=== PATIENT | male | born 1990 | race Caucasian/White ===

== ENCOUNTER 2020-02-13 20:40 | Emergency (ER) | payer BC ==
[~2020-02-13] VITALS: Ht 170.2 cm; Wt 117.9 kg
[~2020-02-13 20:40] MED LIST: NO MEDS
[2020-02-13] MEDS ORDERED: CEFTRIAXONE SOD 1 GM VIAL IM ONE (21:15)
[2020-02-13] MEDS ORDERED: LIDOCAINE 1% 5ML-MPF INJ ONE (21:15)
[2020-02-13] MEDS ORDERED: LIDOCAINE HCL 1% LOCAL INJ 20 ML VIAL ONE (21:20)
[2020-02-13 22:05] LABS: CLARITY,URINE CLOUDY (CLEAR); COLOR,URINE ORANGE (YELLOW)
[2020-02-13 22:06] LABS: LEUKOCYTE ESTERASE ,URINE SMALL (NEGATIVE); NITRITE,URINE POSITIVE (NEGATIVE)
[2020-02-13 22:07] LABS: PROTEIN,URINE DIPSTICK 1+ (NEGATIVE)
[2020-02-13 22:08] LABS: BILIRUBIN,URINE NEGATIVE (NEGATIVE); KETONES,URINE NEGATIVE (NEGATIVE); URINE UROBILINOGEN 1 mg/dL (0.2 - 1)
[2020-02-13 22:15] LABS: BACTERIA,URINE MANY /HPF; EPITHELIAL CELLS,URINE RARE /LPF; RBC,URINE 21-50 /HPF (0-5)
[2020-02-13 22:24] VITALS: BP 134/65
== END 2020-02-13 22:32 | disposition home or self-care (01) ==
LOC: ER 20:40
DX: R30.0 Dysuria (principal); F17.210 Nicotine dependence, cigarettes, uncomplicated
CPT/HCPCS: 81001; 87086; 87186; 99283; J0696; J2001

== ENCOUNTER 2020-02-27 16:55 | Emergency (ER) | payer BC ==
[~2020-02-27] VITALS: Ht 170.2 cm; Wt 117.9 kg
[2020-02-27 18:00] LABS: CLARITY,URINE CLOUDY (CLEAR); COLOR,URINE RED (YELLOW)
[2020-02-27 18:01] LABS: BILIRUBIN,URINE LARGE (NEGATIVE); KETONES,URINE 1+ (NEGATIVE); LEUKOCYTE ESTERASE ,URINE LARGE (NEGATIVE); NITRITE,URINE POSITIVE (NEGATIVE); PROTEIN,URINE DIPSTICK >=300 (NEGATIVE)
[2020-02-27 18:05] LABS: BACTERIA,URINE MODERATE /HPF; EPITHELIAL CELLS,URINE FEW /LPF; MUCUS,URINE FEW (RARE); RBC,URINE >50 /HPF (0-5); WBC,URINE (MAN) >50 /HPF (0-5)
[2020-02-27] MEDS ORDERED: MEROPENEM 1GM 100 ML IV ONE (18:30)
[2020-02-27 19:17] LABS: BASOPHILS # (AUTO) 0.1 (0.0-0.1); BASOPHILS % 0.6 % (0.0-1.0); EOSINOPHILS # (AUTO) 0.1 (0.0-0.4); EOSINOPHILS % 0.4 % (0.0-6.0); HEMATOCRIT 46.3 % (38.2-49.6); LYMPHOCYTES # (AUTO) 1.4 (1.0-3.2); LYMPHOCYTES % 11.6 % (18.0-39.1); MEAN CORPUSCULAR HEMOGLOBIN 29.4 pg (28-32); MEAN CORPUSCULAR HGB CONC 34.6 g/dL (31-35); MEAN CORPUSCULAR VOLUME 85.1 fL (81-99); MONOCYTES # (AUTO) 0.6 (0.2-0.8); MONOCYTES % 4.9 % (4.4-11.3); NEUTROPHILS # (AUTO) 9.9 (2.1-6.9); NEUTROPHILS % 82.3 % (38.7-80.0); PLATELET COUNT 337 x10e3/uL (140-360); RED BLOOD COUNT 5.44 x10e6/uL (4.3-5.7); RED CELL DISTRIBUTION WIDTH 12.8 % (11.7-14.4)
[2020-02-27 19:40] LABS: ALANINE AMINOTRANSFERASE 130 IU/L (0-55); ALBUMIN 4.3 g/dL (3.5-5.0); ALBUMIN/GLOBULIN RATIO 1.3 (0.8-2.0); ALKALINE PHOSPHATASE 89 IU/L (40-150); ANION GAP 12.1 mmol/L (8-16); BLOOD UREA NITROGEN 9 mg/dL (7-26); BUN/CREATININE RATIO 11 (6-25); CALCIUM 9.5 mg/dL (8.4-10.2); CARBON DIOXIDE 27 mmol/L (22-29); CHLORIDE 105 mmol/L (98-107); CREATININE, SERUM 0.82 mg/dL (0.72-1.25); EST GLOMERULAR FILTRATION RATE > 60 ML/MIN (60-); GLUCOSE 101 mg/dL (74-118); POTASSIUM 4.1 mmol/L (3.5-5.1); SODIUM 140 mmol/L (136-145)
[2020-02-27 20:07] VITALS: BP 133/84
== END 2020-02-27 20:14 | disposition home or self-care (01) ==
LOC: ER 16:55
DX: N30.01 Acute cystitis with hematuria (principal); Q54.1 Hypospadias, penile
CPT/HCPCS: 36415; 80053; 81001; 85025; 87040; 87086; 99283; J2185

== ENCOUNTER 2020-06-11 22:54 | Emergency (ER) | payer SELFPAY ==
[~2020-06-11] VITALS: Ht 170.2 cm; Wt 117.9 kg
[2020-06-11 23:43] LABS: CLARITY,URINE CLOUDY (CLEAR); COLOR,URINE RED (YELLOW)
[2020-06-11 23:44] LABS: BILIRUBIN,URINE 1+ (NEGATIVE); KETONES,URINE NEGATIVE (NEGATIVE); LEUKOCYTE ESTERASE ,URINE 2+ (NEGATIVE); NITRITE,URINE NEGATIVE (NEGATIVE); PROTEIN,URINE DIPSTICK >=300 (NEGATIVE); URINE UROBILINOGEN 0.2 mg/dL (0.2 - 1)
[2020-06-11 23:50] LABS: WBC,URINE (MAN) >50 /HPF (0-5)
[2020-06-11 23:51] LABS: BACTERIA,URINE MANY /HPF; EPITHELIAL CELLS,URINE FEW /LPF; RBC,URINE >50 /HPF (0-5); RENAL EPITHELIAL CELLS,URINE FEW; TRANSITIONAL EPI CELLS,URINE FEW
[2020-06-12] MEDS ORDERED: BACTRIM DS TAB1 EACH PO (00:19)
--- NOTE | 2020-06-12 00:26 | Emergency Department Note ---
History of Present Illnes History of Present Illness Chief Complaint: Abdominal Complaints History of Present Illness This is a 29 year old male arrives to the ED with complaints of burning with urination, states he has underlying urethral abnormalities. Chief Complaint Comment PATIENT HAS BEEN HAVING URINARY BURNING SENSATION SINCE 05/31/20, STATES PELVIC PAIN, PELVIC PAIN AND BURNING SENSATION HAS GOTTEN WORSE, DENIES FEVER, SHORTNESS OF BREATH, OR COUGH. PATIENT IS CURRENTLY TAKING AZO OTC Historian: Patient Onset (how long ago): day(s) Onset quality: gradual Duration (how long): day(s) Timing of current episode: constant Progression: unchanged Chronicity: recurrent Relieving factors: none Exacerbating factors: none Past Medical/Family History Physician Review I have reviewed the patient's past medical and family history. Any updates have been documented here. Past Medical History Recent Fever: No Clinical Suspicion of Infectio: No New/Unexplained Change in Ment: No Past Medical History: None Other Surgery: testical surgery, and penile surgery for urinary tract reconstruction Social History Physically hurt or threatened: No Other Last Tetanus: UNKNOWN Review of Systems Review of Systems Constitutional: Reports no symptoms EENTM: Reports no symptoms Cardiovascular: Reports no symptoms Respiratory: Reports no symptoms Gastrointestinal: Reports no symptoms Genitourinary: Reports as per HPI, Reports dysuria Musculoskeletal: Reports no symptoms Integumentary: Reports no symptoms Neurological: Reports no symptoms Psychological: Reports no symptoms Endocrine: Reports no symptoms Hematological/Lymphatic: Reports no symptoms Review of other systems: All other systems negative Physical Exam Related Data Allergies: Coded Allergies: No Known Allergies (Unverified , 09/09/17) Triage Vital Signs Vital Signs Date Time Temp Pulse Resp B/P (MAP) Pulse Ox O2 Delivery O2 Flow Rate FiO2 06/11/20 23:05 98.7 90 20 146/107 98 Room Air Vital signs reviewed: Yes Physical Exam CONSTITUTIONAL Constitutional: Present well-developed, Present well-nourished HENT HENT: Present normocephalic, Present atraumatic, Present oropharynx clear/moist, Present nose normal HENT L/R: Present left ext ear normal, Present right ext ear normal EYES Eyes: Reports PERRL, Reports conjunctivae normal NECK Neck: Present ROM normal PULMONARY Pulmonary: Present effort normal, Present breath sounds normal CARDIOVASCULAR Cardiovascular: Present regular rhythm, Present heart sounds normal, Present capillary refill normal, Present normal rate GASTROINTESTINAL Abdominal: Present soft, Present nontender, Present bowel sounds normal GENITOURINARY Genitourinary: Present exam deferred SKIN Skin: Present warm, Present dry MUSCULOSKELETAL Musculoskeletal: Present ROM normal NEUROLOGICAL Neurological: Present alert, Present oriented x 3, Present no gross motor or sensory deficits PSYCHOLOGICAL Psychological: Present mood/affect normal, Present judgement normal Results Laboratory Laboratory Laboratory Tests Test 06/11/20 23:19 Urine Color Red (YELLOW) Urine Clarity Cloudy (CLEAR) Urine pH 6 (5 - 7) Urine Specific [place] 1.010 (1.010-1.025) Urine Protein >=300 (NEGATIVE) Urine Glucose (UA) Negative (NEGATIVE) Urine Ketones Negative (NEGATIVE) Urine Blood 4+ (NEGATIVE) Urine Nitrite Negative (NEGATIVE) Urine Bilirubin 1+ (NEGATIVE) Urine Urobilinogen 0.2 mg/dL (0.2 - 1) Urine Leukocyte Esterase 2+ (NEGATIVE) Urine RBC >50 /HPF (0-5) Urine WBC >50 /HPF (0-5) Urine Epithelial Cells Few /LPF (NONE) Urine Transitional Epithelial Cells Few (NONE) Urine Renal Epithelial Cells Few (NONE) Urine Bacteria Many /HPF (NONE) Lab results reviewed: Yes Assessment & Plan Medical Decision Making MDM 29-year-old male arrives to the ED with burning with urination, urine consistent with urinary tract infection. Spoke to patient at length about the importance of urology follow-up for resolution of his underlying urethral abnormality Assessment & Plan Final Impression: (1) UTI (urinary tract infection) Depart Disposition: HOME, SELF-CARE Last Vital Signs Date Time Temp Pulse Resp B/P (MAP) Pulse Ox O2 Delivery O2 Flow Rate FiO2 06/11/20 23:05 98.7 90 20 146/107 98 Room Air Home Meds Active Scripts Sulfamethoxazole/Trimethoprim (BACTRIM DS TABLET) 1 Each Tablet, 1 TAB PO BID, #20 TAB 0 Refills Prov:CARISA BEE DO 06/12/20 Reported Medications [No Meds] No Conflict Check 06/05/15 CARISA BEE DO Jun 12, 2020 00:26
== END 2020-06-11 23:45 | disposition home or self-care (01) ==
LOC: ER 23:30
DX: N39.0 Urinary tract infection, site not specified (principal); R30.0 Dysuria; R10.2 Pelvic and perineal pain
CPT/HCPCS: 81001; 87086; 87186; 99283

== ENCOUNTER 2020-06-18 23:48 | Emergency (ER) | payer SELFPAY ==
[~2020-06-18] VITALS: Ht 170.2 cm; Wt 117.9 kg
[~2020-06-18 23:48] MED LIST changes: +BACTRIM DS TAB1 EACH PO
[2020-06-19] MEDS ORDERED: KETOROLAC TROMETHAMINE 60 MG/2 ML VIAL IM ONE (00:30)
[2020-06-19] MEDS ORDERED: SODIUM CHLORIDE 0.9% 1000ML 1,000 ML IV SCH (00:30)
[2020-06-19] MEDS ORDERED: CEFTRIAXONE SOD 1 GM/NS 50 ML 50 ML IV ONE (00:30)
[2020-06-19] MEDS ORDERED: ACETAMINOPHEN 325 MG TAB PO ONE (00:30)
[2020-06-19] MEDS ORDERED: KETOROLAC TROMETHAMINE 30 MG/ML VIAL IV STA (00:43)
--- NOTE | 2020-06-19 00:53 | Emergency Department Note ---
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 Historian: Patient Arrival Mode: Car Onset (how long ago): day(s) (2) Location: RIGHT TESTICLE Quality: SWELLING AND PAIN Radiation: Reports non-radiation Severity: moderate Onset quality: gradual Duration (how long): day(s) (2) Timing of current episode: constant Progression: worsening Context: Reports recent illness (UTI DIAGNOSED ON 06/11/20) Relieving factors: none Exacerbating factors: other (URINATION) Associated symptoms: Reports fever/chills (SUBJECTIVE) Treatments prior to arrival: other (ON BACTRIM DS AND TAKING OTC AZO) Past Medical/Family History Physician Review I have reviewed the patient's past medical and family history. Any updates have been documented here. Past Medical History Recent Fever: No Clinical Suspicion of Infectio: No New/Unexplained Change in Ment: No Past Medical History: None Other Surgery: testical surgery, and penile surgery for urinary tract reconstruction Social History Smoking Cessation: Never Smoker Any Illegal Drug Use: No Physically hurt or threatened: No Family History Family history of heart diseas: No Other Last Tetanus: UNKNOWN Review of Systems Review of Systems Constitutional: Reports as per HPI EENTM: Reports no symptoms Cardiovascular: Reports no symptoms Respiratory: Reports no symptoms Gastrointestinal: Reports no symptoms Genitourinary: Reports as per HPI Musculoskeletal: Reports no symptoms Integumentary: Reports no symptoms Neurological: Reports no symptoms Psychological: Reports no symptoms Endocrine: Reports no symptoms Hematological/Lymphatic: Reports no symptoms Physical Exam Related Data Allergies: Coded Allergies: No Known Allergies (Unverified , 09/09/17) Triage Vital Signs Vital Signs Date Time Temp Pulse Resp B/P (MAP) Pulse Ox O2 Delivery O2 Flow Rate FiO2 06/19/20 00:20 102.3 101 20 157/97 97 Room Air Vital signs reviewed: Yes Physical Exam CONSTITUTIONAL Constitutional: Present well-developed, Present well-nourished, Present distressed (MILD) HENT HENT: Present normocephalic, Present atraumatic, Present oropharynx clear/moist, Present nose normal HENT L/R: Present left ext ear normal, Present right ext ear normal EYES Eyes: Reports PERRL, Reports conjunctivae normal NECK Neck: Present ROM normal PULMONARY Pulmonary: Present effort normal, Present breath sounds normal CARDIOVASCULAR Cardiovascular: Present regular rhythm, Present heart sounds normal, Present capillary refill normal, Present tachycardia (101) GASTROINTESTINAL Abdominal: Present soft, Present nontender, Present bowel sounds normal GENITOURINARY Genitourinary: Present other (SWELLING TO RIGHT SCROTUM/TESTICLE WITH TENDERNESS) SKIN Skin: Present warm, Present dry MUSCULOSKELETAL Musculoskeletal: Present ROM normal NEUROLOGICAL Neurological: Present alert, Present oriented x 3, Present no gross motor or sensory deficits PSYCHOLOGICAL Psychological: Present mood/affect normal, Present judgement normal Results Laboratory Laboratory Laboratory Tests Test 06/19/20 00:35 06/19/20 00:33 White Blood Count 13.62 x10e3/uL (4.8-10.8) Red Blood Count 5.19 x10e6/uL (4.3-5.7) Hemoglobin 14.6 g/dL (14.0-18.0) Hematocrit 44.4 % (38.2-49.6) Mean Corpuscular Volume 85.5 fL (81-99) Mean Corpuscular Hemoglobin 28.1 pg (28-32) Mean Corpuscular Hemoglobin Concent 32.9 g/dL (31-35) Red Cell Distribution Width 13.1 % (11.7-14.4) Platelet Count 359 x10e3/uL (140-360) Neutrophils (%) (Auto) 68.5 % (38.7-80.0) Lymphocytes (%) (Auto) 19.5 % (18.0-39.1) Monocytes (%) (Auto) 9.8 % (4.4-11.3) Eosinophils (%) (Auto) 1.0 % (0.0-6.0) Basophils (%) (Auto) 0.7 % (0.0-1.0) Neutrophils # (Auto) 9.3 (2.1-6.9) Lymphocytes # (Auto) 2.7 (1.0-3.2) Monocytes # (Auto) 1.3 (0.2-0.8) Eosinophils # (Auto) 0.1 (0.0-0.4) Basophils # (Auto) 0.1 (0.0-0.1) Absolute Immature Granulocyte (auto 0.07 x10e3/uL (0-0.1) Sodium Level 133 mmol/L (136-145) Potassium Level 5.0 mmol/L (3.5-5.1) Chloride Level 105 mmol/L (98-107) Carbon Dioxide Level 19 mmol/L (22-29) Anion Gap 14.0 mmol/L (8-16) Blood Urea Nitrogen 9 mg/dL (7-26) Creatinine 1.04 mg/dL (0.72-1.25) Estimat Glomerular Filtration Rate > 60 ML/MIN (60-) BUN/Creatinine Ratio 9 (6-25) Glucose Level 268 mg/dL (74-118) Lactic Acid Level 1.6 mmol/L (0.5-2.0) Calcium Level 9.6 mg/dL (8.4-10.2) Total Bilirubin 0.4 mg/dL (0.2-1.2) Aspartate Amino Transf (AST/SGOT) 121 IU/L (5-34) Alanine Aminotransferase (ALT/SGPT) 299 IU/L (0-55) Alkaline Phosphatase 169 IU/L (40-150) Total Protein 8.3 g/dL (6.5-8.1) Albumin 4.0 g/dL (3.5-5.0) Globulin 4.3 g/dL (2.3-3.5) Albumin/Globulin Ratio 0.9 (0.8-2.0) Urine Color Yellow (YELLOW) Urine Clarity Cloudy (CLEAR) Urine pH 6 (5 - 7) Urine Specific [place] 1.025 (1.010-1.025) Urine Protein 1+ (NEGATIVE) Urine Glucose (UA) 2+ (NEGATIVE) Urine Ketones Negative (NEGATIVE) Urine Blood 2+ (NEGATIVE) Urine Nitrite Positive (NEGATIVE) Urine Bilirubin Negative (NEGATIVE) Urine Urobilinogen 0.2 mg/dL (0.2 - 1) Urine Leukocyte Esterase 1+ (NEGATIVE) Urine RBC >50 /HPF (0-5) Urine WBC >50 /HPF (0-5) Urine Epithelial Cells Few /LPF (NONE) Urine Bacteria Many /HPF (NONE) Lab results reviewed: Yes Imaging Imaging results reviewed: Yes Impressions Examination: Single AP view of the chest. COMPARISON: None. INDICATION: Fever, left testicular swelling and pain IMPRESSION: 1. Lines and Tubes: None 2. Lungs are grossly clear. No consolidation or effusion. 3. Cardiomediastinal silhouette is normal. Pulmonary vasculature is normal. 4. No acute bony abnormalities. Signed by: Dr. Gretchen Cortez M.D. on 06/19/2020 12:59 AM Dictated By: GRETCHEN CORTEZ MD Transcribed By: STACIA on 06/19/2058 COPY TO: SAW WERNER MD~ EXAMINATION: Scrotal ultrasound CLINICAL INDICATION: Right scrotal/testicular pain, right testicular swelling. COMPARISON: None available.. TECHNIQUE: Grayscale and color Doppler evaluation of the scrotum was performed in transverse and longitudinal planes. FINDINGS: RIGHT: The right testicle measures 4.1 x 2.1 x 3.6 cm. Diffusely increased vascularity. There are no masses or calcifications.. The right epididymal head was not visualized. The right epididymal body and tail are edematous/body, and show increased vascularity on color Doppler. No nodules or masses.. No hydrocele. No varicocele. There is normal arterial and venous flow to the right testicle, without evidence of torsion. LEFT: The left testicle measures 4.4 x 2.0 x 3.1 cm. Normal vascularity. There are no masses or calcifications.. The left epididymis measures 1.6 x 0.9 x 1.0 cm. Normal vascularity. 0.8 x 0.7 x 0.9 cm cystic, anechoic lesion in the left epididymal head.. No hydrocele. No varicocele. There is normal arterial and venous flow to the left testicle, without evidence of torsion. SCROTUM: The scrotum has a normal appearance, without focal lesions. IMPRESSION: 1. Findings consistent with right epididymoorchitis, in the appropriate clinical setting. 2. 0.9 cm left epididymal head simple cyst versus hematocele. Signed by: Dr. Gretchen Cortez M.D. on 06/19/2020 2:55 AM EXAM: Right Upper Quadrant Ultrasound INDICATION: ^ELEVATED LFT'S ^Y COMPARISON: None. TECHNIQUE: Transverse and longitudinal images of the right upper abdomen were obtained. FINDINGS: Liver: Size: 20.2 cm in the right midclavicular line, mildly to moderately enlarged Appearance: Increased echogenicity, smooth contour Mass: No focal masses Gallbladder: Contracted Stones/Sludge: None Wall: 0.5 cm Appearance: No pericholecystic fluid or hydrops. Sonographic Warren's Sign: Negative Bile Ducts: Intrahepatic Ducts: No dilatation Extrahepatic Ducts: Common bile duct measures 0.3 cm, no dilatation Pancreas: Obscured by overlying bowel gas. Kidneys: Length: Right 12.2 cm Echogenicity: Normal Collecting System: No hydronephrosis Stone: None Cyst/Mass: None Vessels: Aorta: Obscured by overlying bowel gas. Inferior Vena Cava: Visualized portions are normal Main Portal Vein: 1.0 cm, normal size with hepatopetal flow. Free Fluid: No ascites or pleural effusion IMPRESSION: 1. Mild to moderate hepatomegaly with diffuse fatty infiltration. No focal lesions. 2. Contracted gallbladder. No stones or sludge are identified. 3. Unable to evaluate pancreas and aorta due to overlying bowel gas. Signed by: Dr. Gretchen oCrtez M.D. on 06/19/2020 2:57 AM Dictated By: GRETCHEN CORTEZ MD Assessment & Plan Medical Decision Making MDM PT WITH FEVER, BURNING WITH URINATION AND SWELLING TO RIGHT TESTICLE CBC,CMP, UA, BLOOD CULTURE, URINE CULTURE, CXR, LACTIC ACID, TESTICULAR U/S WITH DOPPLER ORDERED TO EVAL FOR SEPSIS, UTI, EPIDIDYMITIS, ORCHITIS, TESTICULAR TORSION,PNEUMONIA, ELECTROLYTE ABNORMALITY TYLENOL 975 MG PO ORDERED TORADOL 30 MG IV ORDERED ROCEPHIN 1 GRAM IV ORDERED NS 1 LITER IV BOLUS ORDERED pt discharge home, follow up with urology omnicef 300 mg po bid for 10 days Assessment & Plan Final Impression: (1) UTI (urinary tract infection) (2) Fever (3) Epididymitis (4) Orchitis Last Vital Signs Date Time Temp Pulse Resp B/P (MAP) Pulse Ox O2 Delivery O2 Flow Rate FiO2 06/19/20 00:20 102.3 101 20 157/97 97 Room Air Home Meds Active Scripts Sulfamethoxazole/Trimethoprim (BACTRIM DS TABLET) 1 Each Tablet, 1 TAB PO BID, #20 TAB 0 Refills Prov:CARISA BEE DO 06/12/20 Reported Medications [No Meds] No Conflict Check 06/05/15 Medications in the ED Ketorolac Tromethamine 60 mg ONCE ONCE IM ; Start 06/19/20 at 00:30; Stop 06/19/20 at 00:44; Status DC Sodium Chloride 1,000 ml @ 100 mls/hr Q10H IV ; Start 06/19/20 at 00:30; Stop 07/19/20 at 00:29 Acetaminophen 975 mg ONCE ONCE PO ; Start 06/19/20 at 00:30; Stop 06/19/20 at 00:36; Status DC Ceftriaxone Sodium 50 ml @ 100 mls/hr ONCE ONCE IV ; Start 06/19/20 at 00:30; Stop 06/19/20 at 00:59 Ketorolac Tromethamine 30 mg ONCE STAT IV ; Start 06/19/20 at 00:43; Stop 06/19/20 at 00:44; Status SAW TARIQ MD Jun 19, 2020 00:53
--- NOTE | 2020-06-19 01:02 | Diagnostic Imaging Report ---
Examination: Single AP view of the chest. COMPARISON: None. INDICATION: Fever, left testicular swelling and pain IMPRESSION: 1. Lines and Tubes: None 2. Lungs are grossly clear. No consolidation or effusion. 3. Cardiomediastinal silhouette is normal. Pulmonary vasculature is normal. 4. No acute bony abnormalities. Signed by: Dr. Shekhar Cortez M.D. on 06/19/2020 12:59 AM
[2020-06-19 01:04] LABS: BASOPHILS # (AUTO) 0.1 (0.0-0.1); BASOPHILS % 0.7 % (0.0-1.0); EOSINOPHILS # (AUTO) 0.1 (0.0-0.4); HEMATOCRIT 44.4 % (38.2-49.6); HEMOGLOBIN 14.6 g/dL (14.0-18.0); LYMPHOCYTES # (AUTO) 2.7 (1.0-3.2); LYMPHOCYTES % 19.5 % (18.0-39.1); MEAN CORPUSCULAR HEMOGLOBIN 28.1 pg (28-32); MEAN CORPUSCULAR HGB CONC 32.9 g/dL (31-35); MEAN CORPUSCULAR VOLUME 85.5 fL (81-99); MONOCYTES # (AUTO) 1.3 (0.2-0.8); MONOCYTES % 9.8 % (4.4-11.3); NEUTROPHILS # (AUTO) 9.3 (2.1-6.9); NEUTROPHILS % 68.5 % (38.7-80.0); PLATELET COUNT 359 x10e3/uL (140-360); RED BLOOD COUNT 5.19 x10e6/uL (4.3-5.7); RED CELL DISTRIBUTION WIDTH 13.1 % (11.7-14.4)
[2020-06-19 01:13] LABS: BILIRUBIN,URINE NEGATIVE (NEGATIVE); CLARITY,URINE CLOUDY (CLEAR); COLOR,URINE YELLOW (YELLOW); KETONES,URINE NEGATIVE (NEGATIVE); LEUKOCYTE ESTERASE ,URINE 1+ (NEGATIVE); NITRITE,URINE POSITIVE (NEGATIVE); PROTEIN,URINE DIPSTICK 1+ (NEGATIVE); URINE UROBILINOGEN 0.2 mg/dL (0.2 - 1)
[2020-06-19 01:18] LABS: ALANINE AMINOTRANSFERASE 299 IU/L (0-55); ALBUMIN/GLOBULIN RATIO 0.9 (0.8-2.0); ALKALINE PHOSPHATASE 169 IU/L (40-150); BLOOD UREA NITROGEN 9 mg/dL (7-26); BUN/CREATININE RATIO 9 (6-25); CALCIUM 9.6 mg/dL (8.4-10.2); CARBON DIOXIDE 19 mmol/L (22-29); CREATININE, SERUM 1.04 mg/dL (0.72-1.25); EST GLOMERULAR FILTRATION RATE > 60 ML/MIN (60-); GLUCOSE 268 mg/dL (74-118)
[2020-06-19 01:28] LABS: CHLORIDE 105 mmol/L (98-107); SODIUM 133 mmol/L (136-145)
[2020-06-19 01:45] LABS: BACTERIA,URINE MANY /HPF; EPITHELIAL CELLS,URINE FEW /LPF; RBC,URINE >50 /HPF (0-5); WBC,URINE (MAN) >50 /HPF (0-5)
--- NOTE | 2020-06-19 02:58 | Diagnostic Imaging Report ---
EXAMINATION: Scrotal ultrasound CLINICAL INDICATION: Right scrotal/testicular pain, right testicular swelling. COMPARISON: None available.. TECHNIQUE: Grayscale and color Doppler evaluation of the scrotum was performed in transverse and longitudinal planes. FINDINGS: RIGHT: The right testicle measures 4.1 x 2.1 x 3.6 cm. Diffusely increased vascularity. There are no masses or calcifications.. The right epididymal head was not visualized. The right epididymal body and tail are edematous/body, and show increased vascularity on color Doppler. No nodules or masses.. No hydrocele. No varicocele. There is normal arterial and venous flow to the right testicle, without evidence of torsion. LEFT: The left testicle measures 4.4 x 2.0 x 3.1 cm. Normal vascularity. There are no masses or calcifications.. The left epididymis measures 1.6 x 0.9 x 1.0 cm. Normal vascularity. 0.8 x 0.7 x 0.9 cm cystic, anechoic lesion in the left epididymal head.. No hydrocele. No varicocele. There is normal arterial and venous flow to the left testicle, without evidence of torsion. SCROTUM: The scrotum has a normal appearance, without focal lesions. IMPRESSION: 1. Findings consistent with right epididymoorchitis, in the appropriate clinical setting. 2. 0.9 cm left epididymal head simple cyst versus hematocele. Signed by: Dr. Shekhar Cortez M.D. on 06/19/2020 2:55 AM
--- NOTE | 2020-06-19 03:01 | Diagnostic Imaging Report ---
EXAM: Right Upper Quadrant Ultrasound INDICATION: ^ELEVATED LFT'S ^Y COMPARISON: None. TECHNIQUE: Transverse and longitudinal images of the right upper abdomen were obtained. FINDINGS: Liver: Size: 20.2 cm in the right midclavicular line, mildly to moderately enlarged Appearance: Increased echogenicity, smooth contour Mass: No focal masses Gallbladder: Contracted Stones/Sludge: None Wall: 0.5 cm Appearance: No pericholecystic fluid or hydrops. Sonographic Warren's Sign: Negative Bile Ducts: Intrahepatic Ducts: No dilatation Extrahepatic Ducts: Common bile duct measures 0.3 cm, no dilatation Pancreas: Obscured by overlying bowel gas. Kidneys: Length: Right 12.2 cm Echogenicity: Normal Collecting System: No hydronephrosis Stone: None Cyst/Mass: None Vessels: Aorta: Obscured by overlying bowel gas. Inferior Vena Cava: Visualized portions are normal Main Portal Vein: 1.0 cm, normal size with hepatopetal flow. Free Fluid: No ascites or pleural effusion IMPRESSION: 1. Mild to moderate hepatomegaly with diffuse fatty infiltration. No focal lesions. 2. Contracted gallbladder. No stones or sludge are identified. 3. Unable to evaluate pancreas and aorta due to overlying bowel gas. Signed by: Dr. Shekhar Cortez M.D. on 06/19/2020 2:57 AM
== END 2020-06-19 03:41 | disposition home or self-care (01) ==
LOC: ER 06-19 00:30
DX: N50.811 Right testicular pain (principal); N45.3 Epididymo-orchitis; R50.9 Fever, unspecified
CPT/HCPCS: 36415; 71045; 76705; 76870; 80053; 81001; 83605; 85025; 87040; 87086; 87186; 93976; 99284; J0696; J1885; J7030

== ENCOUNTER → 2020-08-18 | Day surgery (SDC) | payer OTHER ==
[2020-08-15 13:08] LABS: BASOPHILS # (AUTO) 0.1 (0.0-0.1); BASOPHILS % 1.2 % (0.0-1.0); EOSINOPHILS # (AUTO) 0.2 (0.0-0.4); EOSINOPHILS % 2.2 % (0.0-6.0); HEMATOCRIT 43.7 % (38.2-49.6); HEMOGLOBIN 15.2 g/dL (14.0-18.0); LYMPHOCYTES # (AUTO) 2.4 (1.0-3.2); LYMPHOCYTES % 31.6 % (18.0-39.1); MEAN CORPUSCULAR HEMOGLOBIN 29.1 pg (28-32); MEAN CORPUSCULAR HGB CONC 34.8 g/dL (31-35); MEAN CORPUSCULAR VOLUME 83.7 fL (81-99); MONOCYTES # (AUTO) 0.7 (0.2-0.8); MONOCYTES % 9.2 % (4.4-11.3); NEUTROPHILS # (AUTO) 4.2 (2.1-6.9); NEUTROPHILS % 55.3 % (38.7-80.0); PLATELET COUNT 295 x10e3/uL (140-360); RED BLOOD COUNT 5.22 x10e6/uL (4.3-5.7); RED CELL DISTRIBUTION WIDTH 12.9 % (11.7-14.4)
[2020-08-15 13:29] LABS: ALANINE AMINOTRANSFERASE 120 IU/L (0-55); ALBUMIN 4.4 g/dL (3.5-5.0); ALBUMIN/GLOBULIN RATIO 1.4 (0.8-2.0); ALKALINE PHOSPHATASE 140 IU/L (40-150); BLOOD UREA NITROGEN 8 mg/dL (7-26); BUN/CREATININE RATIO 9 (6-25); CALCIUM 9.2 mg/dL (8.4-10.2); CARBON DIOXIDE 26 mmol/L (22-29); CHLORIDE 102 mmol/L (98-107); EST GLOMERULAR FILTRATION RATE > 60 ML/MIN (60-); GLUCOSE 246 mg/dL (74-118); SODIUM 139 mmol/L (136-145)
[~2020-08-18] MED LIST changes: +B&O 60MG R/S 60 MG SUPP PR ONE; +BUPIVACAINE HCL 0.5% INJ 30 ML VIAL INJ ONE; +CEFAZOLIN SOD 1 GM/NS 50ML 100 ML IV ONE; +CLINDAMYCIN 600MG / 50ML 50 ML IV ONE; +DEXAMETHASONE SOD PHOS INJ 4 MG/ML VIAL ONE; +FENTANYL CITRATE/PF 100MCG/2 ML INJ ONE; +GENTAMICIN 80MG/NS 100 ML 200 ML IV ONE; +IOPAMIDOL 300MG/ML 50ML INFUS..BTL IV ONE; +LIDOCAINE 1% W/EPINEPHRINE 20 ML VIAL ONE; +LIDOCAINE HCL 2% JELLY 5 ML TUBE ONE; +LIDOCAINE HCL 2% LOCAL INJ 5 ML SDV VIAL INJ ONE; +MIDAZOLAM HCL 2 MG/2 ML VIAL ONE; +ONDANSETRON HCL INJ 2MG/ML 2ML 2 MG/ML VIAL ONE; +PROPOFOL IV EMULSION 10 MG/ML 20 ML VIAL ONE; +SEVOFLURANE INHAL SOLN 250 ML PEN BTL ONE
[2020-08-18 14:05] VITALS: BP 165/94
== END | disposition home or self-care (01) ==
LOC: OR 09:00
PROVIDERS: ATTEND Urology
DX: N36.0 Urethral fistula (principal); N39.0 Urinary tract infection, site not specified; N35.911 Unspecified urethral stricture, male, meatal; N32.89 Other specified disorders of bladder; R35.1 Nocturia; N45.3 Epididymo-orchitis; R80.9 Proteinuria, unspecified; Q54.9 Hypospadias, unspecified; R81 Glycosuria; N43.40 Spermatocele of epididymis, unspecified; E66.9 Obesity, unspecified; F17.200 Nicotine dependence, unspecified, uncomplicated; Z01.812 Encounter for preprocedural laboratory examination; Z11.59 Encounter for screening for other viral diseases; Z68.41 Body mass index [BMI] 40.0-44.9, adult
CPT/HCPCS: 36415; 52281; 53520; 74420; 80053; 83036; 85025; 88305; J0690; J1100; J1580; J2001 ×2; J2250; J2405; J2704; J3010; Q9967; U0002; 88304

== ENCOUNTER 2022-08-20 05:39 | Emergency (ER) | payer BC, OTHER ==
[~2022-08-20] VITALS: Ht 170.2 cm; Wt 108.0 kg
[~2022-08-20 05:39] MED LIST changes: -B&O 60MG R/S 60 MG SUPP PR ONE; -BUPIVACAINE HCL 0.5% INJ 30 ML VIAL INJ ONE; -CEFAZOLIN SOD 1 GM/NS 50ML 100 ML IV ONE; -CLINDAMYCIN 600MG / 50ML 50 ML IV ONE; -DEXAMETHASONE SOD PHOS INJ 4 MG/ML VIAL ONE; -FENTANYL CITRATE/PF 100MCG/2 ML INJ ONE; -GENTAMICIN 80MG/NS 100 ML 200 ML IV ONE; -IOPAMIDOL 300MG/ML 50ML INFUS..BTL IV ONE; -LIDOCAINE 1% W/EPINEPHRINE 20 ML VIAL ONE; -LIDOCAINE HCL 2% JELLY 5 ML TUBE ONE; -LIDOCAINE HCL 2% LOCAL INJ 5 ML SDV VIAL INJ ONE; -MIDAZOLAM HCL 2 MG/2 ML VIAL ONE; -ONDANSETRON HCL INJ 2MG/ML 2ML 2 MG/ML VIAL ONE; -PROPOFOL IV EMULSION 10 MG/ML 20 ML VIAL ONE; -SEVOFLURANE INHAL SOLN 250 ML PEN BTL ONE
[2022-08-20] MEDS ORDERED: SODIUM CHLORIDE 0.9% 1000ML 1,000 ML IV STA (05:57)
[2022-08-20] MEDS ORDERED: CLONIDINE HCL 0.1 MG TAB PO ONE (06:00)
[2022-08-20 06:25] LABS: BASOPHILS # (AUTO) 0.1 (0.0-0.1); BASOPHILS % 0.9 % (0.0-1.0); EOSINOPHILS # (AUTO) 0.1 (0.0-0.4); EOSINOPHILS % 0.9 % (0.0-6.0); HEMATOCRIT 45.1 % (38.2-49.6); HEMOGLOBIN 15.6 g/dL (14.0-18.0); LYMPHOCYTES % 27.1 % (18.0-39.1); MEAN CORPUSCULAR HEMOGLOBIN 29.9 pg (28-32); MEAN CORPUSCULAR HGB CONC 34.6 g/dL (31-35); MEAN CORPUSCULAR VOLUME 86.4 fL (81-99); MONOCYTES # (AUTO) 0.7 (0.2-0.8); MONOCYTES % 9.6 % (4.4-11.3); NEUTROPHILS # (AUTO) 4.6 (2.1-6.9); NEUTROPHILS % 61.4 % (38.7-80.0); PLATELET COUNT 241 x10e3/uL (140-360); RED BLOOD COUNT 5.22 x10e6/uL (4.3-5.7); RED CELL DISTRIBUTION WIDTH 12.3 % (11.7-14.4)
[2022-08-20 06:36] LABS: INR 1.09; PROTHROMBIN TIME 15.1 seconds (11.9-14.5)
[2022-08-20 06:37] LABS: PARTIAL THROMBOPLASTIN TIME 31.1 seconds (23.8-35.5)
[2022-08-20 06:49] LABS: ALANINE AMINOTRANSFERASE 203 IU/L (0-55); ALBUMIN/GLOBULIN RATIO 1.1 (0.8-2.0); ALKALINE PHOSPHATASE 103 IU/L (40-150); ANION GAP 16.2 mmol/L (8-16); BLOOD UREA NITROGEN 12 mg/dL (7-26); BUN/CREATININE RATIO 15 (6-25); CALCIUM 9.1 mg/dL (8.4-10.2); CARBON DIOXIDE 24 mmol/L (22-29); CHLORIDE 98 mmol/L (98-107); CREATINE KINASE 192 IU/L (30-200); CREATININE, SERUM 0.78 mg/dL (0.72-1.25); GLUCOSE 322 mg/dL (74-118); MAGNESIUM 1.8 MG/DL (1.3-2.1); POTASSIUM 4.2 mmol/L (3.5-5.1); SODIUM 134 mmol/L (136-145)
[2022-08-20] MEDS ORDERED: SODIUM CHLORIDE 0.9% 1000ML 1,000 ML ONE (07:19)
== END 2022-08-20 08:19 | disposition home or self-care (01) ==
LOC: ER 05:44
DX: R07.89 Other chest pain (principal); I10 Essential (primary) hypertension; Z20.822 Contact with and (suspected) exposure to COVID-19
CPT/HCPCS: 0223U; 36415; 71045; 80053; 82550; 82553; 83735; 84484; 85025; 85379; 85610; 85730; 93005; 99284; J7030

== ENCOUNTER 2024-04-13 11:32 | Emergency (ER) | payer BC ==
[~2024-04-13] VITALS: Ht 170.2 cm; Wt 103.0 kg
[2024-04-13 11:37] VITALS: O2SAT 99
[2024-04-13 12:19] LABS: BASOPHILS # (AUTO) 0.1 (0.0-0.1); BASOPHILS % 0.6 % (0.0-1.0); EOSINOPHILS # (AUTO) 0.1 (0.0-0.4); EOSINOPHILS % 0.4 % (0.0-6.0); HEMATOCRIT 44.5 % (38.2-49.6); HEMOGLOBIN 15.9 g/dL (14.0-18.0); LYMPHOCYTES # (AUTO) 2.4 (1.0-3.2); LYMPHOCYTES % 15.7 % (18.0-39.1); MEAN CORPUSCULAR HEMOGLOBIN 30.1 pg (28-32); MEAN CORPUSCULAR HGB CONC 35.7 g/dL (31-35); MEAN CORPUSCULAR VOLUME 84.1 fL (81-99); MONOCYTES # (AUTO) 1.1 (0.2-0.8); MONOCYTES % 7.1 % (4.4-11.3); NEUTROPHILS # (AUTO) 11.8 (2.1-6.9); NEUTROPHILS % 75.9 % (38.7-80.0); PLATELET COUNT 318 x10e3/uL (140-360); RED BLOOD COUNT 5.29 x10e6/uL (4.3-5.7); RED CELL DISTRIBUTION WIDTH 12.8 % (11.7-14.4); WHITE BLOOD COUNT 15.49 x10e3/uL (4.8-10.8)
[2024-04-13] MEDS: SODIUM CHLORIDE 0.9% 1000ML 1,000 ML IV ONE (12:26)
[2024-04-13 12:29] LABS: BILIRUBIN,URINE NEGATIVE (NEGATIVE); CLARITY,URINE CLOUDY (CLEAR); COLOR,URINE YELLOW (YELLOW); GLUCOSE, URINE NEGATIVE (NEGATIVE); KETONES,URINE TRACE (NEGATIVE); LEUKOCYTE ESTERASE ,URINE MODERATE (NEGATIVE); NITRITE,URINE POSITIVE (NEGATIVE); PH,URINE 6.5 (5 - 7); PROTEIN,URINE DIPSTICK 2+ (NEGATIVE); URINE UROBILINOGEN 0.2 mg/dL (0.2 - 1)
[2024-04-13 12:40] LABS: BACTERIA,URINE MANY /HPF; EPITHELIAL CELLS,URINE FEW /LPF; RBC,URINE 21-50 /HPF (0-5); WBC,URINE (MAN) >50 /HPF (0-5)
[2024-04-13 12:41] LABS: ANION GAP 14.2 mmol/L (8-16); BILIRUBIN,TOTAL 1.1 mg/dL (0.2-1.2); CALCIUM 9.4 mg/dL (8.4-10.2); CREATININE, SERUM 0.86 mg/dL (0.72-1.25); POTASSIUM 4.2 mmol/L (3.5-5.1); TOTAL PROTEIN 8.1 g/dL (6.5-8.1)
[2024-04-13] MEDS ORDERED: CEPHALEXIN500 MG PO (13:51)
[2024-04-13] MEDS: KETOROLAC TROMETHAMINE 30 MG/ML VIAL IV STA (14:23)
[2024-04-13 14:48] VITALS: BP 133/77; PULSE 66; RESP 17; TEMP 99.3
== END 2024-04-13 14:51 | disposition home or self-care (01) ==
LOC: ER 12:03
DX: R50.9 Fever, unspecified (principal); N39.0 Urinary tract infection, site not specified; R30.0 Dysuria; E11.9 Type 2 diabetes mellitus without complications
CPT/HCPCS: 36415; 74176; 80053; 81001; 85025; 99284; J0696; J7030

== ENCOUNTER 2024-08-16 01:32 | Emergency (ER) | payer BC ==
[~2024-08-16] VITALS: Ht 170.2 cm; Wt 103.0 kg
[~2024-08-16 01:32] MED LIST changes: +CEPHALEXIN500 MG PO
[2024-08-16 01:35] VITALS: PULSE 80; RESP 18; TEMP 98.4; O2SAT 100
[2024-08-16] MEDS ORDERED: KETOROLAC TROMETHAMINE 60 MG/2 ML VIAL ONE (01:45)
[2024-08-16] MEDS ORDERED: PREDNISONE 20 MG TAB ONE (01:45)
[2024-08-16] MEDS: KETOROLAC TROMETHAMINE 60 MG/2 ML VIAL IM ONE (01:46)
[2024-08-16] MEDS: PREDNISONE 20 MG TAB PO ONE (01:50)
[2024-08-16] MEDS ORDERED: ULTRAM 50MG50 MG PO (04:06)
== END 2024-08-16 04:10 | disposition home or self-care (01) ==
LOC: ER 01:38
DX: M25.512 Pain in left shoulder (principal); M54.12 Radiculopathy, cervical region; E11.9 Type 2 diabetes mellitus without complications
CPT/HCPCS: 72125; 73030; 99283; J1885; J7512

== ENCOUNTER 2024-12-01 23:52 | Emergency (ER) | payer BC ==
[~2024-12-01] VITALS: Ht 170.2 cm; Wt 108.9 kg
[~2024-12-01 23:52] MED LIST changes: +ULTRAM 50MG50 MG PO
[2024-12-02 00:06] VITALS: PULSE 91; RESP 20; TEMP 98.6
[2024-12-02 00:40] LABS: CLARITY,URINE TURBID (CLEAR); COLOR,URINE RED (YELLOW)
[2024-12-02 00:41] LABS: BILIRUBIN,URINE NEGATIVE (NEGATIVE); GLUCOSE, URINE 1+ (NEGATIVE); KETONES,URINE NEGATIVE (NEGATIVE); LEUKOCYTE ESTERASE ,URINE TRACE (NEGATIVE); NITRITE,URINE POSITIVE (NEGATIVE); PH,URINE 5.5 (5 - 7); PROTEIN,URINE DIPSTICK >=300 (NEGATIVE); URINE UROBILINOGEN 1 mg/dL (0.2 - 1)
[2024-12-02 00:51] LABS: BACTERIA,URINE MANY /HPF; RBC,URINE >50 /HPF (0-5)
[2024-12-02 00:52] LABS: EPITHELIAL CELLS,URINE FEW /LPF
[2024-12-02] MEDS ORDERED: CEFDINIR300 MG PO (00:58)
[2024-12-02 01:14] VITALS: BP 136/90; PULSE 67; RESP 18; TEMP 98.8; O2SAT 98
== END 2024-12-02 01:15 | disposition home or self-care (01) ==
LOC: ER 23:58
DX: R30.0 Dysuria (principal); N39.0 Urinary tract infection, site not specified; E11.9 Type 2 diabetes mellitus without complications
CPT/HCPCS: 81001; 87086; 87186; 99283